=== PATIENT | female | born 1960 | race Caucasian/White ===

== ENCOUNTER 2017-11-30 13:57 | Emergency (ER) | payer MEDICAID ==
[~2017-11-30] VITALS: Ht 162.6 cm; Wt 95.3 kg
[2017-11-30 14:02] VITALS: BP 150/82
[2017-11-30] MEDS ORDERED: KETOROLAC TROMETH 60MG/2ML VIAL IM ONE (17:00)
== END 2017-11-30 17:29 | disposition home or self-care (01) ==
LOC: ER 13:57
DX: S00.03XA Contusion of scalp, initial encounter (principal); M48.02 Spinal stenosis, cervical region; W18.11XA Fall from or off toilet without subsequent striking against object, initial encounter; Y93.89 Activity, other specified; Y92.091 Bathroom in other non-institutional residence as the place of occurrence of the external cause; Y99.8 Other external cause status
CPT/HCPCS: 70450; 72125; 93005; 96372; 99284; J1885